=== PATIENT | male | born 1990 | race Caucasian/White ===

== ENCOUNTER 2018-08-25 18:28 | Emergency (ER) | payer MEDICAID, OTHER ==
[2018-08-25] MEDS: OXYCODONE/ACETAMINOPHEN (5/325) TAB PO (19:20)
[2018-08-25] MEDS: KETOROLAC 30 MG INJ IM (19:21)
== END 2018-08-25 22:21 | disposition home or self-care (01) ==
LOC: FTE 18:28
DX: S92.061A Displaced intraarticular fracture of right calcaneus, initial encounter for closed fracture (principal); S90.31XA Contusion of right foot, initial encounter; X58.XXXA Exposure to other specified factors, initial encounter; Y92.9 Unspecified place or not applicable
CPT/HCPCS: 29505; 72100; 73590; 73610; 73610-RT; 73630; 73630-LT; 96372; 99284-25